=== PATIENT | male | born 1990 | race Caucasian/White ===

== ENCOUNTER 2023-06-19 16:54 | Emergency (ER) | payer BC, SELFPAY ==
[2023-06-19 16:58] VITALS: BP 152/94; BMI 24.4
[2023-06-19 17:18] LABS: % Basophils 0.7 % (0-2); % Eosinophils 0.5 % (0-6); % Immature Granulocytes 0.5 % (0-0.5); % Lymphocytes 11.9 % (20.5-51.1); % Monocytes 8.6 % (1.7-9.3); % Neutrophils 77.8 % (42.2-75.2); Absolute Lymphocytes 0.7 10^3/uL (1.2-3.4); Absolute Monocytes 0.5 10^3/uL (0.1-0.6); Absolute Neutrophils 4.5 10^3/uL (1.4-6.5); Hemoglobin 12.7 g/dL (13.0-18.0); Mean Corp Hgb Conc. 31.8 g/dL (33.0-37.0); Mean Corpuscular Hgb 19.6 pg (27.0-31.0); Mean Corpuscular Volume 61.7 fL (80.0-94.0); Mean Platelet Volume 9.4 fL (7.4-10.4); Nucleated Red Blood Cells % 0 % (-); Platelet Count 225 10^3/uL (130-400); Red Blood Cell Count 6.48 10^6/uL (4.70-6.10); Red Cell Dist. Width 18.3 % (11.5-14.5); Urine Albumin Negative (Neg - Trace); Urine Bilirubin Negative (Negative); Urine Character Clear (Clear); Urine Color Yellow; Urine Glucose Negative (Negative); Urine Ketone Negative (Negative); Urine Leukocyte Negative (Negative); Urine Nitrite Negative (Negative); Urine Occult Blood Negative (Negative); Urine Specific Gravity 1.015 (<1.030); Urine Urobilinogen Negative (Neg - 1+); White Blood Cell Count 5.8 10^3/uL (4.8-10.8)
[2023-06-19 17:32] LABS: ALT (SGPT) 17 U/L (0-50); AST (SGOT) 18 U/L (17-59); Alkaline Phosphatase 56 U/L (38-126); Blood Urea Nitrogen 14 mg/dl (9-20); Carbon Dioxide 27 mmol/L (22-30); Chloride 103 mmol/L (98-107); Estimated Creatinine Clearance > 125 ml/min; Glucose 108 mg/dl (70-99); Lipase 88 U/L (23-300); Potassium 3.7 mmol/L (3.5-5.1); Sodium 138 mmol/L (135-145); Total Bilirubin 1.3 mg/dl (0.2-1.3); eGFR > 60.00
--- NOTE | 2023-06-19 19:06 | ED.GENMED ---
History of Present Illness
General
Chief Complaint: Abdominal Pain
Source: patient
Exam Limitations: none
Time Seen by Provider: 06/19/23 18:33
Travel History
Have you had any contact with someone who has COVID-19?: No
Do you have any symptoms of coronavirus? Fever > 100 degrees, chills, cough, shortness of breath, sore throat, loss of taste or smell, muscle aches, or headache?: No
History of Present Illness
History of Present Illness:
This is a 33 year old male that comes in with c/o left flank/abd pain. States that this has been going on since February. States that he went to see the PCP and he was given Amoxicillin. States that it started to hurt with the medication and
continue hurting for about 2 months. States that he went to and was given a slip for a CT scan but [facility] wouldn't do the Ct and said to still wait. States that he has continued with pain, feels bloaty and gassy. States that he has
occasional Diarrhea. Denies any fever, chills, chest pain, SOB, nausea, vomiting, headache, dizziness, urinary burning.
Past History
Past History
ED Past Medical History: Other (Neurofibromatosis, )
ED Past Surgical History: Orthopedic (Left wrist tendon repair)
Patient has exhibited threatening behavior?: No
PSI?: No
Social History
Tobacco: Vaping (Occasionally)
Alcohol: Occasional
Drug: None
Personal: Single
Living: with family
Employment: Employed
Family History
Family History: Cancer (colon ca)
Review of Systems
Review of Systems
All Other Systems: ROS reviewed and negative except as documented in HPI and ROS
Constitutional: Reports no symptoms; Denies fever or chills
EENT: Reports no symptoms
Respiratory: Reports no symptoms; Denies cough or trouble breathing
Cardiac: Reports no symptoms; Denies chest pain
ABD/GI: Reports abdominal pain and diarrhea (occasional); Denies nausea or vomiting
: Reports no symptoms; Denies dysuria, frequency or urgency
Musculoskeletal: Reports no symptoms
Skin: Reports no symptoms
Neurological: Reports no symptoms; Denies dizzy or headache
Psychiatric: Reports no symptoms
Phy Exam
General Physical Exam
General Presentation: well appearing and no apparent distress
General age: appears stated age
General Skin: warm and dry
General Habitus: normal
General Mental: alert
General Hydration: appears well hydrated
ENT Exam
ENT Exam: TM's normal, pharynx normal and neck supple
Eye Exam
Eye Exam: EOMI
Cardiovascular Exam
Cardiovascular Exam: regular rate/rhythm, no edema, no murmur and normal peripheral pulses
Pulmonary Exam
Pulmonary Exam: lungs clear, no respiratory distress, no rales, chest non tender, no crackles, no rhonchi, no wheezing and no cough
Gastrointestinal Exam
Gastrointestinal Exam: normal bowel sounds, non tender, soft, no organomegaly, no pulsatile mass, non distended and no cva tenderness
Musculoskeletal Exam
Musculoskeletal Exam: full ROM and no edema
Skin Exam
Skin Exam: normal color, warm/dry, no rash and no petechia
Psychiatric Exam
Psychiatric Exam: normal mood/affect
Course
Orders/Labs/Results
Orders:
Orders
06/19/23 17:08
Complete Blood Count/With Diff Urgent
Comprehensive Metabolic Panel Urgent
Lipase Urgent
Urinalysis Reflex To Culture Urgent
Date Specimen was Collected: 06/19/23
Time Specimen was Collected: 16:58
06/19/23 19:06
CT Abd/pel W Iv And Oral Contr Urgent
Comment:
Reason For Exam: left sided abd pain
0.9% Sodium Chloride 1000 ml [Nss] 1,000 ml IV BOLUS
Iohexol [Omnipaque] See Protocol PO NOW STA
Abnormal Lab Results
06/19/23
17:08
RBC 6.48 H 10^6/uL
(4.70-6.10)
Hgb 12.7 L g/dL
(13.0-18.0)
MCV 61.7 L fL
(80.0-94.0)
MCH 19.6 L pg
(27.0-31.0)
MCHC 31.8 L g/dL
(33.0-37.0)
RDW 18.3 H %
(11.5-14.5)
Absolute Lymphs (auto) 0.7 L 10^3/uL
(1.2-3.4)
Neutrophils % 77.8 H %
(42.2-75.2)
Lymphocytes % 11.9 L %
(20.5-51.1)
Glucose 108 H mg/dl
(70-99)
06/19/23 17:08
06/19/23 17:08
Hgb slightly low. Glucose nonfasting. Lipase normal at 88, Urine negative for infection or blood
Vital Signs
Initial and Last Documented VS:
Initial Vital Signs
Temp Pulse Resp BP Pulse Ox
98.1 F 100 16 152/94 100
06/19/23 16:58 06/19/23 16:58 06/19/23 16:58 06/19/23 16:58 06/19/23 16:58
Last Documented Vital Signs
Temp Pulse Resp BP Pulse Ox
98.1 F 75 16 132/68 97
06/19/23 16:58 06/19/23 19:28 06/19/23 16:58 06/19/23 21:00 06/19/23 21:15
MDM/Problems Addressed
Differential Diagnosis Includes:
Colitis, Diverticulitis, Enteritis
MDM/Problems Addressed:
This is A 33 year old male that comes in with c/o left sided flank/abd pain. States that this has been going on since February but the pain has gotten worse.
Will get Labs, CT scan, urine.
back into see patient. Explained that his CT is negative for any acute process. There is moderate stool burden and there is a small cyst on the right kidney. Patient can increase his water intake. Follow up with the family doctor. Return with any
concerns.
Chronic conditions affecting care:
NA
Acute Exacerbation and/or Progression of Chronic Illness:
NA
*Radiology
Radiology exam reviewed: radiology read reviewed (CT-No acute pathology of the abdomen or pelvis Identified. Moderate fecal matrial throughout the colon. Progressed. Too small to characterize hypodense right renal lesion likely a benign cyst.
Stable. )
*Pulse Oximetry
Patient hypoxic: no
*EKG
Interpreted by ED Provider?: NA
Rate: EKG- N/A
*Windows Migration Technician Interpretation
Rate: Windows Migration Technician- N/A
*Critical Care Note
Total Time (30-74mins, 75-104mins- exclusive of procedures): Not Applicable
ED Attending Note
-
Portions of this chart may have been created with voice recognition software.� Occasional wrong word or��sound alike� substitutions may have occurred due to the inherent limitations of voice recognition software.
Discharge Plan
Departure
Patient Disposition: Home (Routine Discharge)
Date of Disposition: 06/19/23
Time of Disposition: 22:14
Patient with high blood pressure during this ER visit?: Yes
Condition: Good
Covid-19: Not Applicable
Discharge Problem:
Constipation, Left sided abdominal pain
Instructions: Constipation, Adult (DC), Abdominal Pain, BLOOD PRESSURE
Prescriptions:
No Action
cephalexin 500 MG capsule
500 mg PO QID Qty: 28 0RF
dicyclomine 20 mg tablet
20 mg PO TID PRN (Reason: abdominal pain) Qty: 20 0RF
ondansetron 4 mg tablet,disintegrating
4 mg PO Q8H 5 Days Qty: 15 0RF
pantoprazole [Protonix] 20 mg tablet,delayed release (DR/EC)
20 mg PO DAILY Qty: 20 0RF
Referrals:
Fermín Carnes MD [Family Provider] - Call in 1-3 days for appt
Activity Restrictions/Additional Instructions:
As discussed, your blood work shows slight Anemia. Your urine is negative for infection and our CT is negative for any acute process. There is moderate amount of stool in the colon. Please increase your water intake to 8-8oz glasses daily. Follow up
with the family doctor for recheck. IF YOU HAVE INCREASED OR CHANGING PAIN, OR YOU HAVE ANY OTHER CONCERNS PLEASE RETURN TO THE EMERGENCY ROOM.
Interventions
Interventions:
*Risk Screen - Suicide Last Done: 06/19/23 16:58
*General Assessment Last Done: 06/19/23 16:58
*ED COVID-19 Vaccine History Last Done: 06/19/23 16:58
[facility] Assessment Last Done: 06/19/23 19:31
Discharge Date and Time
Print Language: GREENLANDIC
[2023-06-19] MEDS: NSS 1000 IV (19:26)
[2023-06-19 19:28] VITALS: BP 132/86
[2023-06-19] MEDS: OMNIPAQUE 50 ML PO (19:28)
[2023-06-19 20:00] VITALS: BP 131/74
[2023-06-19 21:00] VITALS: BP 132/68
[2023-06-19 22:48] VITALS: BP 130/73
== END 2023-06-19 22:25 | disposition home or self-care (01) ==
LOC: EMR 16:54
PROVIDERS: Emergency Medicine; EMERGENCY PHYSICIAN Emergency Medicine; FAMILY PHYSICIAN Family Medicine
DX: K59.00 Constipation, unspecified (principal); F17.290 Nicotine dependence, other tobacco product, uncomplicated; Z80.0 Family history of malignant neoplasm of digestive organs
CPT/HCPCS: 99284; 96360; 74177; 80053; 81003; 83690; 85025; Q9967